=== PATIENT | male | born 1965 | race Caucasian/White ===

== ENCOUNTER → 2017-04-18 | Outpatient (CLI) | payer MEDICARE ==
[~2017-04-18] MED LIST: BACTRIM DS 8001 TAB PO; BACTROBAN OINT22 GM PO; FLOMAX0.4 MG PO; LISINOPRIL10 M1 PO; SEPTRA DS 800 M1 TAB PO; VICODIN 500 MG-1 TAB PO; VITAMIN B COMPL1 TA1 PO; VITAMIN D400 I1 PO
== END | disposition home or self-care (01) ==
LOC: US 07:46
DX: K76.0 Fatty (change of) liver, not elsewhere classified (principal); K80.20 Calculus of gallbladder without cholecystitis without obstruction; Z90.81 Acquired absence of spleen